=== PATIENT | female | born 1975 | race Caucasian/White ===

== ENCOUNTER → 2016-09-16 | Outpatient (CLI) | payer BC, OTHER ==
--- NOTE | 2016-09-17 14:05 | CT ---
EXAM DATE: 09/16/16 PATIENT'S AGE: 41 Patient: VIET DURHAM Facility: [place], [place] Site . Site : 1975 Study: CT Head [id number] 5:05:36 PM Ordering Physician: Connor Reyes Final Report: INDICATION: Trauma. Headaches TECHNIQUE: Non-contrast CT of the head is submitted. No comparisons. FINDINGS: The ventricles, sulci and gyri are of normal size, shape and contour. Midline structures are centrally located. No convincing evidence of intra- or extra- axial fluid collections. IMPRESSION: 1. No radiographic evidence of acute intracranial abnormalities. Dictated by Humberto Hitchcock MD @ Sep 16 2016 6:50PM (Electronic Signature) Report Signed by Proxy and Original Signed Document filed in the Medical Record. MTDD
== END ==
LOC: MW.DI 16:45
PROVIDERS: ATTEND Nurse Practitioner Family
DX: G44.309 Post-traumatic headache, unspecified, not intractable (principal)
CPT/HCPCS: 70450; 70450-26